=== PATIENT | female | born 1980 | race African-American/Black ===

== ENCOUNTER 2017-10-05 10:10 | Emergency (ER) | payer OTHER ==
[~2017-10-05] VITALS: Ht 162.6 cm; Wt 131.5 kg
[~2017-10-05 10:10] MED LIST: AMLODIPINE BESY10 MG PO; BYSTOLIC 5 MG5 M1 PO; BYSTOLIC20 MG PO; COLESTIPOL HCL1 G1 PO; GLUCOPHAGE XR500 MG PO; IBUPROFEN 600600 M1 PO; METFORMIN HCL500 MG PO; PERCOCET PO; TRAMADOL 50 MG50 MG PO
[2017-10-05] MEDS ORDERED: TESSALON PERLE100 MG PO (10:27)
[2017-10-05] MEDS ORDERED: VERAPAMIL ER100 MG PO (10:29)
[2017-10-05] MEDS ORDERED: IBUPROFEN 600600 M1 PO (10:36)
== END 2017-10-05 11:02 | disposition home or self-care (01) ==
LOC: ER 10:10
DX: J06.9 Acute upper respiratory infection, unspecified (principal); I10 Essential (primary) hypertension; Z90.49 Acquired absence of other specified parts of digestive tract; Z88.8 Allergy status to other drugs, medicaments and biological substances

== ENCOUNTER 2017-10-29 05:22 | Emergency (ER) | payer OTHER ==
[~2017-10-29] VITALS: Ht 160 cm; Wt 134.7 kg
[~2017-10-29 05:22] MED LIST changes: +TESSALON PERLE100 MG PO; +VERAPAMIL ER100 MG PO
[2017-10-29 06:09] VITALS: BP 181/129
== END 2017-10-29 06:10 | disposition home or self-care (01) ==
LOC: ER 05:22
DX: J02.0 Streptococcal pharyngitis (principal); I10 Essential (primary) hypertension; Z88.8 Allergy status to other drugs, medicaments and biological substances; Z90.49 Acquired absence of other specified parts of digestive tract